=== PATIENT | female | born 1945 | race Caucasian/White ===

== ENCOUNTER 2021-08-20 05:45 | Emergency (ER) | payer MEDICARE, MEDICAID ==
[~2021-08-20] VITALS: Ht 121.9 cm; Wt 50.0 kg
[2021-08-20 06:43] LABS: CLARITY,URINE CLEAR (Clear); COLOR,URINE YELLOW (Yellow); GLUCOSE, URINE NEGATIVE (Neg); KETONES,URINE NEGATIVE (Neg); LEUKOCYTE ESTERASE ,URINE NEGATIVE (Neg); NITRITES, URINE NEGATIVE (Neg); OCCULT BLOOD,URINE NEGATIVE (Neg); PROTEIN,URINE NEGATIVE (Neg); UA COLLECTION TYPE CLN CATCH MIDSTREAM; UROBILINOGEN,URINE 0.2 E.U/dL (0.2-1.0)
[2021-08-20 06:49] LABS: URINE AMPHETAMINE SCREEN NEGATIVE (Neg); URINE BARBITUATE SCREEN NEGATIVE (Neg); URINE BENZODIAZEPINES SCREEN NEGATIVE (Neg); URINE CANNABINOID SCREEN NEGATIVE (Neg); URINE COCAINE SCREEN NEGATIVE (Neg); URINE METHADONE SCREEN NEGATIVE (Neg); URINE OPIATE SCREEN NEGATIVE (Neg); URINE PHENCYCLIDINE SCREEN NEGATIVE (Neg)
[2021-08-20 08:37] LABS: BASOPHILS % (AUTO) 0.6 % (0-1); EOSINOPHILS # (AUTO) 0.1 X10'3 (0-0.9); HEMATOCRIT 38.7 % (35.0-45.0); HEMOGLOBIN 12.8 g/dl (12.0-16.0); LYMPHOCYTES % (AUTO) 20.8 % (21-51); MEAN CORPUSCULAR HEMOGLOBIN 29.4 PG (27.0-31.0); MEAN CORPUSCULAR VOLUME 89.2 FL (78-98); MEAN PLATELET VOLUME 10.1 FL (7.4-10.4); MONOCYTES # (AUTO) 0.4 X10'3 (0-0.9); MONOCYTES % (AUTO) 7.8 % (2-12); NEUTROPHILS # (AUTO) 3.4 X10'3 (1.8-7.7); NEUTROPHILS % (AUTO) 68.8 % (42-75); PLATELET COUNT 241 X10'3 (140-440); RED BLOOD COUNT 4.33 X10'6 (4.20-5.60); RED CELL DISTRIBUTION WIDTH 13.7 % (11.5-14.5)
[2021-08-20 08:42] LABS: ALANINE AMINOTRANSFERASE 16 U/L (12-78); ALBUMIN 4.4 G/DL (3.4-5.0); ALBUMIN/GLOBULIN RATIO 1.3 (1.1-1.5); ALKALINE PHOSPHATASE 95 IU/L (46-116); ANION GAP 10 (8-16); ASPARTATE AMINO TRANSFERASE 12 U/L (10-37); BILIRUBIN,TOTAL 0.4 MG/DL (0.1-1.0); BLOOD UREA NITROGEN 21 MG/DL (7-18); BUN/CREATININE RATIO 21.6 (6.6-38.0); CALCIUM 9.5 MG/DL (8.5-10.1); CHLORIDE 103 MMOL/L (99-107); CREATININE 0.97 MG/DL (0.40-0.90); GLUCOSE 97 MG/DL (70-104); POTASSIUM 3.6 MMOL/L (3.5-5.1); SODIUM 138 MMOL/L (135-145); TOTAL CARBON DIOXIDE 24.8 MMOL/L (24-32); TOTAL PROTEIN 7.7 G/DL (6.4-8.2); eGFR 56 ML/MIN
[2021-08-20 08:53] LABS: ETHANOL < 0.010 GM/DL (0.0-0.010)
--- NOTE | 2021-08-20 18:34 | NUR ---
Patient talked on the phone with her daughter; conversation appeared to go well. She is confused where she is at but pleasant and cooperative. Patient is eating at bedside.
--- NOTE | 2021-08-20 22:00 | NUR ---
Patient reading a book in bed; pleasant and cooperative. No apparent distress observed.
--- NOTE | 2021-08-21 01:24 | NUR ---
Patient reading quietly in bed; no apparent distress. Pleasant and cooperative.
--- NOTE | 2021-08-21 03:23 | NUR ---
Patient continues to read; pleasant and cooperative. No apparent distress.
--- NOTE | 2021-08-21 04:43 | NUR ---
Patient pulled a package of four "SeroVital" capsules from her purse and swolled them before database report writer could obtain them. Dr. Carl dubose and purse placed in locker.
--- NOTE | 2021-08-21 05:42 | NUR ---
Patient remains awake and sitting at bedside. She is confused; looking for her sister Shelley. Easily verbally redirected.
--- NOTE | 2021-08-21 06:40 | NUR ---
Patient laying in bed supine with her eyes closed. No distress observed. Continue to monitor.
--- NOTE | 2021-08-21 08:05 | NUR ---
Patient eating breakfast. No distress observed. Continue to monitor.
--- NOTE | 2021-08-21 09:53 | NUR ---
Patient walking with a walker and sitting next to the ED [facility]. Patient is speaking on the phone with her sister. No distress observed. Continue to monitor.
--- NOTE | 2021-08-21 11:48 | NUR ---
Patient sleeping supine. No distress observed. Continue to monitor.
--- NOTE | 2021-08-21 12:10 | NUR ---
Patient awoke and attempted to walk out. Patient was redirected to her room. Patient did not sleep at all last night per report. Patient is not eating her lunch. No distress noted. Continue to monitor.
--- NOTE | 2021-08-21 14:06 | NUR ---
Patient sitting on side of bed. No distress observed. Continue to monitor.
[2021-08-21] MEDS ORDERED: AMLO2.5T2 PO (16:19)
[2021-08-21] MEDS ORDERED: LOP25T PO (16:19)
[2021-08-21] MEDS ORDERED: VITC500T PO (16:19)
--- NOTE | 2021-08-21 16:45 | NUR ---
Patient is in her bed, reading a book. No distress observed at this time. Continue to monitor.
[2021-08-21] MEDS ORDERED: FURO-150 PO (17:23)
[2021-08-21] MEDS ORDERED: APIX5TAB3 PO (17:23)
[2021-08-21] MEDS ORDERED: GABA300C PO (17:23)
--- NOTE | 2021-08-21 17:58 | NUR ---
Patient on the phone with her sister. No distress observed. Continue to monitor.
[2021-08-21] MEDS: apixaban 5mg tablet PO SCH (19:56)
--- NOTE | 2021-08-21 21:45 | NUR ---
Oriented x1. Pt does not know where she is or where she came from. With prompting she could remember her sister's name and that she will be returning to live with her in [place]. It is doubtful she will retain this information. Cooperative with care took all meds. Ambulated to Bathroom. Pt sleeping in bed at this time.
--- NOTE | 2021-08-22 00:14 | NUR ---
Pt sleeping up x1 this shift to use the bathroom.
--- NOTE | 2021-08-22 04:26 | NUR ---
Pt continues to sleep.
--- NOTE | 2021-08-22 05:11 | NUR ---
Pt talking on phone with sister Shelley Roberson from [place].
--- NOTE | 2021-08-22 05:40 | NUR ---
Pt incontinent urine clothes and linen changed.
--- NOTE | 2021-08-22 06:41 | NUR ---
Patient sleeping on right side. No distress observed. Continue to monitor.
[2021-08-22] MEDS ORDERED: gabapentin 300mg capsule PO SCH (08:00)
[2021-08-22] MEDS ORDERED: amLODIPine 5mg tablet PO SCH (08:00)
[2021-08-22] MEDS ORDERED: ascorbic acid 500mg tablet PO SCH (08:00)
--- NOTE | 2021-08-22 08:19 | NUR ---
Patient eating lunch. No distress observed. Continue to monitor.
[2021-08-22] MEDS: apixaban 5mg tablet PO SCH ×2 (08:51→20:02)
--- NOTE | 2021-08-22 10:21 | NUR ---
Patient ambulatory to BR with walker. No distress observed. Continue to monitor.
--- NOTE | 2021-08-22 11:33 | NUR ---
RN spoke with Shelley, patient's sister. RN gave Shelley flight information for patient. [facility] at 0600 tomorrow which [employer]ust[employer]ian will arrange. The [employer] Ticket is in the chart. E-Ticket [id number]. [facility][id number] to [place] ([place]) August 23, @ 0720 am [facility][id number] from [place] to [place] ([place]) August 23, @ 10:30 am Arriving in [place] at 6:27 pm Shelley to orange picker machine operator patient and will call tomorrow so RN can verify if flight is on time. Shelley is not capable of finding out. But is able to pick her up from [facility] in [place]. RN to sent 3 sack lunches with patient. [facility] should have one of her bags.
--- NOTE | 2021-08-22 12:24 | NUR ---
RN arranged for [employer] to molded goods spot picker patient [place] at 0545, August 23, and take patient to the airport. CLARENCE Ibrahim will follow patient in her car and assist patient to window, assist patient in paying for her luggage and will check with the Airport to see if one of her bags is still there because she is missing one piece of luggage. Patient will need to wear double depends and will need to take a few with her. RN to arrange night shift manager to molded goods spot picker 3 meals for patient to take with her.
--- NOTE | 2021-08-22 12:32 | NUR ---
Patient eating lunch. No distress observed. Continue to monitor.
--- NOTE | 2021-08-22 13:02 | NUR ---
Patient ambulatory to BR with walker, steady gait. No distress observed. Continue to monitor.
--- NOTE | 2021-08-22 14:37 | NUR ---
patient awake,sitting at the edge of the bed.In view of RN.We will monitor.
--- NOTE | 2021-08-22 15:43 | NUR ---
Pharmacist speaking with patient. No distress observed. Continue to monitor.
--- NOTE | 2021-08-22 17:05 | NUR ---
Patient sitting up in bed awake and looking around. No distress observed. Patient knows she is leaving tomorrow. RN left a list that needs to be completed by night nurse since patient is leaving so early. Patient calm. Continue to monitor.
--- NOTE | 2021-08-22 18:34 | NUR ---
Pt sitting quietly at the end of her bed at change of shift eating dinner.
--- NOTE | 2021-08-22 19:21 | NUR ---
pt ambulated to restroom and returned to bed. Pt is laying down in bed appears to be resting comfortably. RR even and unlabored.
--- NOTE | 2021-08-22 20:42 | NUR ---
Pt woke to take HS meds, reports she has no needs at this time. Pt is laying in bed asleep, appears to be resting comfortably rr [id number]
--- NOTE | 2021-08-22 20:52 | NUR ---
Pt awake ambulated to restroom and returned to bed.
--- NOTE | 2021-08-23 00:37 | NUR ---
Pt is asleep
--- NOTE | 2021-08-23 03:02 | NUR ---
Pt is asleep, laying on her right side rr even and unlabored no s/s distress.
--- NOTE | 2021-08-23 05:03 | NUR ---
Pt is sitting on the end of her bed, dressed and waiting to discharge from the hospital. She is looking forward to going home.
[2021-08-23 05:39] VITALS: BP 154/83
[2021-08-24] MEDS ORDERED: furosemide 20MG tablet PO SCH (08:00)
== END 2021-08-23 05:44 | disposition home or self-care (01) ==
LOC: ER 05:46
DX: F79 Unspecified intellectual disabilities (principal); Z20.822 Contact with and (suspected) exposure to COVID-19
CPT/HCPCS: 36415; 80053; 80305; 80320; 81003; 84443; 85025; 87635; 99285; C9803